=== PATIENT | male | born 1995 | race Caucasian/White ===

== ENCOUNTER 2017-03-27 14:50 | Emergency (ER) | payer BC ==
[~2017-03-27] VITALS: Ht 188 cm; Wt 70.8 kg
[2017-03-27] MEDS ORDERED: METHOCARBAMOL 750 MG TABLET ONE (16:29)
[2017-03-27] MEDS ORDERED: KETOROLAC 30 MG/1 ML ONE (16:29)
[2017-03-27] MEDS ORDERED: METHOCARBAMOL 750 MG TABLET PO ONE (16:30)
[2017-03-27] MEDS ORDERED: KETOROLAC 30 MG/1 ML IM ONE (16:30)
[2017-03-27 17:20] LABS: MICROSCOPIC AUTO
[2017-03-27 17:38] LABS: CULTURE INDICATED? YES
[2017-03-27 18:38] VITALS: BP 115/77
== END 2017-03-27 18:42 | disposition home or self-care (01) ==
LOC: ED 18:36
DX: M62.830 Muscle spasm of back (principal); M54.6 Pain in thoracic spine; Z87.891 Personal history of nicotine dependence; R82.99 Other abnormal findings in urine
CPT/HCPCS: 81001; 87086; 96372; 99284; J1885

== ENCOUNTER 2019-11-02 17:09 | Emergency (ER) | payer BC ==
[~2019-11-02] VITALS: Ht 190.5 cm; Wt 83.2 kg
--- NOTE | 2019-11-02 17:19 | NUR ---
no answer x1
--- NOTE | 2019-11-02 18:04 | NUR ---
THIS IS A 24 YO MALE COMING IN FOR RIGHT ANKLE PAIN AND SWELLING X1 DAY, STATES HE HIT IT ON THE CAR DOOR A COUPLE DAYS AGO WHILE GETTING OUT. SWELLING NOTED TO LATERAL ASPECT OF ANKLE, TENDER TO PALPATION, CSM INTACT. PATIENT ALSO C/O EXPOSURE TO COVID AT HOME FROM BROTHER, WOULD LIKE TO BE TESTED. C/O SHORTNESS OF BREATH WITH ACTIVITY, LOSS OF TASTE AND SMELL. MONITORING IN PLACE, VSS, NADN AT THIS TIME. ANKLE ELEVATED AND ICE PACK APPLIED.
--- NOTE | 2019-11-02 18:05 | NUR ---
ERP TO ROOM FOR EVAL
--- NOTE | 2019-11-02 18:11 | NUR ---
COVID SWAB WALKED TO LAB
[2019-11-02] MEDS ORDERED: IBUPROFEN 600 MG TABLET ONE (18:29)
[2019-11-02] MEDS ORDERED: IBUPROFEN 600 MG TABLET PO ONE (18:30)
--- NOTE | 2019-11-02 18:32 | NUR ---
PATIENT MEDICATED PER EMAR
--- NOTE | 2019-11-02 18:50 | NUR ---
REPORT GIVEN TO GUIDO BHAT. PLAN OF CARE DISCUSSED
[2019-11-02 19:15] VITALS: BP 114/56
== END 2019-11-02 19:35 | disposition home or self-care (01) ==
LOC: ED 19:25
DX: S93.401A Sprain of unspecified ligament of right ankle, initial encounter (principal); S93.601A Unspecified sprain of right foot, initial encounter; U07.1 COVID-19; B34.9 Viral infection, unspecified; X50.1XXA Overexertion from prolonged static or awkward postures, initial encounter; Y93.89 Activity, other specified; Y92.89 Other specified places as the place of occurrence of the external cause; Y99.8 Other external cause status
CPT/HCPCS: 36415; 87635; 99284

== ENCOUNTER 2020-10-22 12:34 | Emergency (ER) | payer BC, OTHER ==
[~2020-10-22] VITALS: Ht 188 cm; Wt 81.5 kg
[2020-10-22 12:36] VITALS: BP 130/70
== END 2020-10-22 13:40 | disposition home or self-care (01) ==
LOC: ED 13:30
DX: R51.9 Headache, unspecified (principal); R09.81 Nasal congestion; Z20.822 Contact with and (suspected) exposure to COVID-19
CPT/HCPCS: 99283; U0003; U0005